=== PATIENT | female | born 2005 | race Two or more races ===

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

== ENCOUNTER 2024-02-27 10:37 | Emergency (ER) | payer OTHER ==
[~2024-02-27] VITALS: Ht 162.6 cm; Wt 45.4 kg
[~2024-02-27 10:37] MED LIST: NAPR500T14 PO; PRENATAL ONE D1 EACH PO
[2024-02-27] MEDS ORDERED: DICLOFENAC SODI50 MG PO (17:21)
== END 2024-02-27 19:18 | disposition home or self-care (01) ==
LOC: ER 10:39
DX: S92.351A Displaced fracture of fifth metatarsal bone, right foot, initial encounter for closed fracture (principal); W18.39XA Other fall on same level, initial encounter; Y93.02 Activity, running; Y92.89 Other specified places as the place of occurrence of the external cause; Y99.9 Unspecified external cause status